=== PATIENT | male | born 1995 | race Hispanic/Latino ===

== ENCOUNTER 2019-01-07 01:17 | Emergency (ER) | payer SELFPAY ==
[2019-01-07] MEDS ORDERED: TETANUS & DIPHTHERIA TOX,ADULT 0.5 ML VIAL ONE (02:27)
[2019-01-07] MEDS ORDERED: HYDROCODONE/APAP 7.5/325 MG TAB ONE (02:27)
--- NOTE | 2019-01-07 02:48 | ER ---
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 No active bleeding at this time. Transition of care: patient was not received from another setting of care. Onset of symptoms was January 07, 2019. Risk Assessment: Do you want to hurt yourself or someone else? Patient reports no desire to harm self or others. Initial Sepsis Screen: Does the patient meet any 2 criteria? No. Patient's initial sepsis screen is negative. Does the patient have a suspected source of infection? Yes: Skin breakdown/wound. Care prior to arrival: None. 01:34 Method Of Arrival: Ambulatory aa1 01:34 Acuity: RONALD 4 aa1 Triage Assessment: 01:35 General: Appears in no apparent distress. comfortable, Behavior is calm, cooperative, aa1 appropriate for age. Historical: - Allergies: 01:35 No Known Allergies; aa1 - Home Meds: 01:35 None [Active]; aa1 - PMHx: 01:35 None; aa1 - PSHx: 01:35 Tonsillectomy; aa1 - Immunization history:: Last tetanus immunization: unknown. - Social history:: Smoking status: Patient/guardian denies using tobacco. - Ebola Screening: : No symptoms or risks identified at this time. Screenin:05 Abuse screen: Denies threats or abuse. Denies injuries from another. Nutritional aa1 screening: No deficits noted. Tuberculosis screening: No symptoms or risk factors identified. Fall Risk None identified. Assessment: 02:05 General: Appears in no apparent distress. comfortable, Behavior is calm, cooperative, aa1 appropriate for age. Pain: Complains of pain in palmar aspect of right forearm. Neuro: Level of Consciousness is awake, alert, obeys commands, Oriented to person, place, time, situation, Moves all extremities. Respiratory: Airway is patent Respiratory effort is even, unlabored, Respiratory pattern is regular, symmetrical. GI: No signs and/or symptoms were reported involving the gastrointestinal system. : No signs and/or symptoms were reported regarding the genitourinary system. EENT: No signs and/or symptoms were reported regarding the EENT system. Derm: Skin is intact, is healthy with good turgor, Skin is pink, warm \T\ dry. Musculoskeletal: Circulation, motion, and sensation intact. Capillary refill < 3 seconds, Range of motion: intact in all extremities. Injury Description: Laceration sustained to palmar aspect of right forearm is superficial, 0.5 to 2.5 cm long, not bleeding. 02:54 Reassessment: Patient appears in no apparent distress at this time. Patient is alert, aa1 oriented x 3, equal unlabored respirations, skin warm/dry/pink. Discussed d/c \T\ f/u instructions with pt \T\ family; denies questions or concerns at this time Patient states feeling better. Vital Signs: 01:35 BP 161 / 76; Pulse 65; Resp 16; Temp 98.5; Pulse Ox 98% on R/A; Weight 77.11 kg; Height aa1 5 ft. 7 in. (170.18 cm); Pain 6/10; 02:54 BP 132 / 67; Pulse 62; Resp 16; Pulse Ox 99% on R/A; Pain 4/10; aa1 01:35 Body Mass Index 26.63 (77.11 kg, 170.18 cm) aa1 ED Course: 01:21 Patient arrived in ED. am2 01:34 Triage completed. aa1 01:35 Arm band placed on right wrist. Patient placed in waiting room, Patient notified of aa1 wait time. 01:59 Que Santo MD is Attending Physician. pkl 02:05 Patient has correct armband on for positive identification. Bed in low position. Call aa1 light in reach. 02:09 Hailey Sky RN is Primary Nurse. aa1 02:17 X-ray completed. Portable x-ray completed in exam room. Patient tolerated procedure tm4 well. 02:18 Forearm Right XRAY In Process Unspecified. EDMS 02:45 No provider procedures requiring assistance completed. Patient did not have IV access aa1 during this emergency room visit. Dressings: Macarena x 1 palmar aspect of right forearm non-adherent dressing x 1 palmar aspect of right forearm. Sling applied to right arm. Wound care: to laceration located on palmar aspect of right forearm was cleaned with Hibiclens, irrigated with normal saline, dressed with Neosporin, Patient tolerated well. 02:46 Byron Rodríguez MD is Referral Physician. 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 Lot #: [id number]. } Route: IM; Site: right deltoid; 02:47 Follow up: Response: No adverse reaction aa1 02:18 Drug: [place] (7.5 mg-325 mg) 1 tabs Route: PO; aa1 02:54 Follow up: Response: No adverse reaction; Pain is decreased aa1 02:53 Drug: KeFLEX 500 mg Route: PO; aa1 02:53 Follow up: Response: No adverse reaction; Medication administered at discharge. aa1 Outcome: 02:46 Discharge ordered by MD. pkl 02:58 Discharged to home ambulatory, with family. aa1 02:58 Condition: good 02:58 Discharge instructions given to patient, family, Instructed on discharge instructions, follow up and referral plans. medication usage, wound care, Demonstrated understanding of instructions, follow-up care, medications, wound care, Prescriptions given X 2. 03:14 Patient left the ED. ag4 Signatures: Dispatcher [employer] Hailey Bautista RN RN aa1 Que Santo MD MD pkl Marcela Vences 4 Danielle Dang Adan ag4
--- NOTE | 2019-01-07 02:48 | EDPHYS ---
Physician Documentation [facility] Name: Herson Conteh Age: 23 yrs Sex: Male : 1995 Arrival Date: 01/07/2019 Time: 01:21 Bed 12 Private MD: ED Physician Que Santo HPI: 01/07 02:38 This 23 yrs old Male presents to ER via Ambulatory with complaints of Puncture pkl Wound To Arm - by nail. 02:38 The patient or guardian complains of pain, that is acute, nail puncture wound . The pkl complaints affect the right forearm. Onset: The symptoms/episode began/occurred just prior to arrival. Historical: - Allergies: 01:35 No Known Allergies; aa1 - Home Meds: 01:35 None [Active]; aa1 - PMHx: 01:35 None; aa1 - PSHx: 01:35 Tonsillectomy; aa1 - Immunization history:: Last tetanus immunization: unknown. - Social history:: Smoking status: Patient/guardian denies using tobacco. - Ebola Screening: : No symptoms or risks identified at this time. ROS: 02:38 Eyes: Negative for injury, pain, redness, and discharge, ENT: Negative for injury, pkl pain, and discharge, Neck: Negative for injury, pain, and swelling, Cardiovascular: Negative for chest pain, palpitations, and edema, Respiratory: Negative for shortness of breath, cough, wheezing, and pleuritic chest pain, Abdomen/GI: Negative for abdominal pain, nausea, vomiting, diarrhea, and constipation, Back: Negative for injury and pain, : Negative for injury, bleeding, discharge, and swelling. 02:38 MS/extremity: Positive for pain, puncture, of the right forearm. 02:38 Neuro: Negative for altered mental status. Exam: 02:38 Head/Face: Normocephalic, atraumatic. Eyes: Pupils equal round and reactive to light, pkl extra-ocular motions intact. Lids and lashes normal. Conjunctiva and sclera are non-icteric and not injected. Cornea within normal limits. Periorbital areas with no swelling, redness, or edema. ENT: Nares patent. No nasal discharge, no septal abnormalities noted. Tympanic membranes are normal and external auditory canals are clear. Oropharynx with no redness, swelling, or masses, exudates, or evidence of obstruction, uvula midline. Mucous membranes moist. Neck: Trachea midline, no thyromegaly or masses palpated, and no cervical lymphadenopathy. Supple, full range of motion without nuchal rigidity, or vertebral point tenderness. No Meningismus. Chest/axilla: Normal chest wall appearance and motion. Nontender with no deformity. No lesions are appreciated. Cardiovascular: Regular rate and rhythm with a normal S1 and S2. No gallops, murmurs, or rubs. Normal PMI, no JVD. No pulse deficits. Respiratory: Lungs have equal breath sounds bilaterally, clear to auscultation and percussion. No rales, rhonchi or wheezes noted. No increased work of breathing, no retractions or nasal flaring. Abdomen/GI: Soft, non-tender, with normal bowel sounds. No distension or tympany. No guarding or rebound. No evidence of tenderness throughout. Back: No spinal tenderness. No costovertebral tenderness. Full range of motion. Neuro: Awake and alert, GCS 15, oriented to person, place, time, and situation. Cranial nerves II-XII grossly intact. Motor strength 5/5 in all extremities. Sensory grossly intact. Cerebellar exam normal. Normal gait. 02:38 Musculoskeletal/extremity: Extremities: grossly normal except: noted in the right forearm: pain, No active bleeding noted. Vital Signs: 01:35 BP 161 / 76; Pulse 65; Resp 16; Temp 98.5; Pulse Ox 98% on R/A; Weight 77.11 kg; Height aa1 5 ft. 7 in. (170.18 cm); Pain 6/10; 02:54 BP 132 / 67; Pulse 62; Resp 16; Pulse Ox 99% on R/A; Pain 4/10; aa1 01:35 Body Mass Index 26.63 (77.11 kg, 170.18 cm) aa1 Procedures: 02:38 Puncture wound thoroughly cleansed. Antibiotic started. Follow up with Dr. Rosenthal in 2 pk to 3 days. Return if necessary. Patient understood instructions. MDM: 01:59 Patient medically screened. pkl 02:38 Data reviewed: vital signs, nurses notes, radiologic studies, plain films. 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 Lot #: [id number]. } Route: IM; Site: right deltoid; 02:47 Follow up: Response: No adverse reaction aa1 02:18 Drug: [place] (7.5 mg-325 mg) 1 tabs Route: PO; aa1 02:54 Follow up: Response: No adverse reaction; Pain is decreased aa1 02:53 Drug: KeFLEX 500 mg Route: PO; aa1 02:53 Follow up: Response: No adverse reaction; Medication administered at discharge. aa1 Disposition: 01/07/19 02:46 Discharged to Home. Impression: Puncture wound right forearm. - Condition is Stable. - Prescriptions for Keflex 500 mg Oral Capsule - take 1 capsule by ORAL route every 6 hours for 7 days; 28 capsule. Ultram 50 mg Oral Tablet - take 1 tablet by ORAL route every 8 hours As needed; 20 tablet. - Work release form, Medication Reconciliation Form, Thank You Letter, Antibiotic Education, Prescription Opioid Use form. - Follow up: Byron Rodríguez MD; When: 2 - 3 days; Reason: Re-evaluation by your physician. - Problem is new. - Symptoms have improved. Signatures: Dispatcher [employer] Hailey Bautista RN RN aa1 Que Santo MD MD pkl Marcelo Franco ag4 Corrections: (The following items were deleted from the chart) 03:14 02:46 01/07/2019 02:46 Discharged to Home. Impression: Puncture wound right forearm. ag4 Condition is Stable. Forms are Medication Reconciliation Form, Thank You Letter, Antibiotic Education, Prescription Opioid Use. Follow up: Byron Rodríguez; When: 2 - 3 days; Reason: Re-evaluation by your physician. Problem is new. Symptoms have improved. pkl
[2019-01-07] MEDS ORDERED: CEPHALEXIN 250 MG CAP ONE (03:04)
--- NOTE | 2019-01-07 08:36 | RAD REPORT ---
EXAM DESCRIPTION: RAD - Forearm Right - 01/07/2019 2:16 am CLINICAL HISTORY: Puncture wound COMPARISON: None. Right arm FINDINGS: No fracture is identified. There is no dislocation or periosteal reaction noted. Soft tissue wound is present posterior mid forearm. Air is seen in soft tissues. No foreign body conf irmed. IMPRESSION: Posterior right forearm soft tissue wound. No foreign body confirmed. No bone abnormality.
== END 2019-01-07 03:14 | disposition home or self-care (01) ==
LOC: ER 01:17
DX: S51.831A Puncture wound without foreign body of right forearm, initial encounter (principal); W45.0XXA Nail entering through skin, initial encounter; Y93.9 Activity, unspecified; Y92.9 Unspecified place or not applicable; Z23 Encounter for immunization
CPT/HCPCS: 90471; 90714; 99284

== ENCOUNTER 2021-10-13 20:19 | Emergency (ER) | payer SELFPAY ==
--- NOTE | 2021-10-13 21:30 | ER ---
Nurse's Notes [facility] Name: Herson Conteh Age: 26 yrs Sex: Male : 1995 Arrival Date: 10/13/2021 Time: 20:24 Bed 10 Private MD: Diagnosis: Anxiety disorder, unspecified Presentation: 10/13 21:02 Chief complaint: Patient states: "I have had a headache for the last 6 days, I checked vc1 my blood pressure and it was high in the 190's". Coronavirus screen: Vaccine status: Patient reports being unvaccinated. At this time, the client does not indicate any symptoms associated with coronavirus-19. Ebola Screen: No symptoms or risks identified at this time. Risk Assessment: Do you want to hurt yourself or someone else? Patient reports no desire to harm self or others. Onset of symptoms is unknown. 21:02 Method Of Arrival: Ambulatory vc1 21:02 Acuity: RONALD 3 vc1 Triage Assessment: 21:04 General: Appears in no apparent distress. comfortable, Behavior is calm, cooperative, vc1 appropriate for age. Pain: Complains of pain in headache Pain does not radiate. Historical: - Allergies: 21:04 No Known Allergies; vc1 - Home Meds: 21:04 None [Active]; vc1 - PMHx: 21:04 None; vc1 - PSHx: 21:04 None; vc1 - Immunization history:: Adult Immunizations up to date, Client reports having NOT received the Covid vaccine. Flu vaccine is not up to date. - Social history:: Smoking status: unknown. Screenin:16 Abuse screen: Denies threats or abuse. Denies injuries from another. Nutritional ld1 screening: No deficits noted. Tuberculosis screening: No symptoms or risk factors identified. Fall Risk None identified. Assessment: 21:16 Reassessment: see triage assessment Patient denies pain at this time. ld1 Vital Signs: 21:05 Weight 75.3 kg; Height 5 ft. 7 in. (170.18 cm); vc1 21:16 BP 143 / 83; Pulse 91; Resp 18; Temp 98.7(TE); Pulse Ox 100% on R/A; Weight 74.84 kg; ld1 Height 5 ft. 7 in. (170.18 cm); Pain 0/10; 21:16 Body Mass Index 25.84 (74.84 kg, 170.18 cm) ld1 ED Course: 20:24 Patient arrived in ED. kz 20:59 [facility]tran [facility] jr8 20:59 Adriel Garcia MD is Attending Physician. jr8 21:04 Triage completed. vc1 21:05 Arm band placed on right wrist. vc1 21:07 Alexia Stevenson, RN is Primary Nurse. ld1 21:16 Patient has correct armband on for positive identification. Placed in gown. Bed in low ld1 position. Call light in reach. Side rails up X2. Pulse ox on. NIBP on. Door closed. Noise minimized. Warm blanket given. 21:16 No provider procedures requiring assistance completed. ld1 21:36 Patient did not have IV access during this emergency room visit. ld1 Administered Medications: No medications were administered Outcome: 21:29 Discharge ordered by . jr8 21:36 Discharged to home ambulatory. ld1 21:36 Condition: stable 21:36 Discharge instructions given to patient, Instructed on discharge instructions, follow up and referral plans. medication usage, Demonstrated understanding of instructions, follow-up care, medications, Prescriptions given X 1. 21:36 Patient left the ED. ld1 Signatures: Faisal Beltran PA PA jr8 Alexia Stevenson, RN RN ld1 Terra Weber RN RN vc1 Marline Rutledge
--- NOTE | 2021-10-13 21:30 | EDPHYS ---
Physician Documentation [facility] Name: Herson Conteh Age: 26 yrs Sex: Male : 1995 Arrival Date: 10/13/2021 Time: 20:24 Bed 10 Private MD: ED Physician Adriel Garcia HPI: 10/13 23:47 This 26 yrs old Male presents to ER via Ambulatory with complaints of High jr8 Blood Pressure. 23:47 Onset: The symptoms/episode began/occurred acutely, today. Associated signs and jr8 symptoms: Pertinent positives: headache. The patient has experienced similar episodes in the past, a few times. The patient has not recently seen a physician. Patient stated that he has had mild headaches on and off for the past several days. Also with mild anxiety. Today blood pressure was elevated. Denies any other symptoms at this time. Historical: - Allergies: 21:04 No Known Allergies; vc1 - Home Meds: 21:04 None [Active]; vc1 - PMHx: 21:04 None; vc1 - PSHx: 21:04 None; vc1 - Immunization history:: Adult Immunizations up to date, Client reports having NOT received the Covid vaccine. Flu vaccine is not up to date. - Social history:: Smoking status: unknown. ROS: 23:47 Eyes: Negative for injury, pain, redness, and discharge, ENT: Negative for injury, jr8 pain, and discharge, Neck: Negative for injury, pain, and swelling, Cardiovascular: Negative for chest pain, palpitations, and edema, Respiratory: Negative for shortness of breath, cough, wheezing, and pleuritic chest pain, Abdomen/GI: Negative for abdominal pain, nausea, vomiting, diarrhea, and constipation, Back: Negative for injury and pain, MS/Extremity: Negative for injury and deformity, Skin: Negative for injury, rash, and discoloration. 23:47 Neuro: Positive for headache, Negative for dizziness, gait disturbance, numbness, tingling, visual changes, weakness. 23:47 Psych: Positive for anxiety. Exam: 23:47 Constitutional: This is a well developed, well nourished patient who is awake, alert, jr8 and in no acute distress. Neck: Trachea midline, no thyromegaly or masses palpated, and no cervical lymphadenopathy. Supple, full range of motion without nuchal rigidity, or vertebral point tenderness. No Meningismus. Cardiovascular: Regular rate and rhythm with a normal S1 and S2. No gallops, murmurs, or rubs. Normal PMI, no JVD. No pulse deficits. Respiratory: Lungs have equal breath sounds bilaterally, clear to auscultation and percussion. No rales, rhonchi or wheezes noted. No increased work of breathing, no retractions or nasal flaring. Abdomen/GI: Soft, non-tender, with normal bowel sounds. No distension or tympany. No guarding or rebound. No evidence of tenderness throughout. Back: No spinal tenderness. No costovertebral tenderness. Full range of motion. Skin: Warm, dry with normal turgor. Normal color with no rashes, no lesions, and no evidence of cellulitis. MS/ Extremity: Pulses equal, no cyanosis. Neurovascular intact. Full, normal range of motion. Neuro: Awake and alert, GCS 15, oriented to person, place, time, and situation. Cranial nerves II-XII grossly intact. Motor strength 5/5 in all extremities. Sensory grossly intact. Cerebellar exam normal. Normal gait. Psych: Awake, alert, with orientation to person, place and time. Behavior, mood, and affect are within normal limits. Vital Signs: 21:05 Weight 75.3 kg; Height 5 ft. 7 in. (170.18 cm); vc1 21:16 BP 143 / 83; Pulse 91; Resp 18; Temp 98.7(TE); Pulse Ox 100% on R/A; Weight 74.84 kg; ld1 Height 5 ft. 7 in. (170.18 cm); Pain 0/10; 21:16 Body Mass Index 25.84 (74.84 kg, 170.18 cm) ld1 MDM: 21:00 Patient medically screened. [facility] 21:28 Data reviewed: vital signs, nurses notes, and as a result, I will discharge patient. jr8 Data interpreted: Pulse oximetry: on room air is 100 %. Interpretation: normal. Counseling: I had a detailed discussion with the patient and/or guardian regarding: the historical points, exam findings, and any diagnostic results supporting the discharge/admit diagnosis, the need for outpatient follow up, a family practitioner, to return to the emergency department if symptoms worsen or persist or if there are any questions or concerns that arise at home. ED course: Patient feeling much better. Blood pressure stable at this point and will not treated with medication. Recommended that he keep a log to ensure that he is not having spikes in his blood pressure. Patient seems to be having anxiety which she has had in the past as well. We will start him on hydroxyzine to see how he does. If he worsens any point time to come back for further evaluation. Patient good with plan at this time. Otherwise needs to follow-up with primary care physician.. Administered Medications: No medications were administered Disposition Summary: 10/13/21 21:29 Discharge Ordered Location: Home jr8 Problem: new jr8 Symptoms: have improved jr8 Condition: Stable jr8 Diagnosis - Anxiety disorder, unspecified jr8 Followup: jr8 - With: Private Physician - When: 1 week - Reason: Recheck today's complaints, Continuance of care, Re-evaluation by your physician Discharge Instructions: - Discharge Summary Sheet jr8 - Panic Attack jr8 Forms: - Medication Reconciliation Form jr8 - Thank You Letter jr8 - Antibiotic Education jr8 - Prescription Opioid Use jr8 Prescriptions: - Hydroxyzine HCl 50 mg Oral Tablet - take 1 tablet by ORAL route every 8 hours As needed; 20 tablet; Refills: 0, jr8 Product Selection Permitted Addendum: 10/15/2021 06:37 Co-signature as Attending Physician, Adriel Garcia MD I agree with the assessment and c moore plan of care. Signatures: Adriel Garcia MD MD cha Roszak, Josh, PA PA jr8 Terra Weber RN RN vc1 Corrections: (The following items were deleted from the chart) 10/13 23:48 23:47 Constitutional: This is a well developed, well nourished patient who is awake, jr8 alert, and in no acute distress. Neck: Trachea midline, no thyromegaly or masses palpated, and no cervical lymphadenopathy. Supple, full range of motion without nuchal rigidity, or vertebral point tenderness. No Meningismus. Cardiovascular: Regular rate and rhythm with a normal S1 and S2. No gallops, murmurs, or rubs. Normal PMI, no JVD. No pulse deficits. Respiratory: Lungs have equal breath sounds bilaterally, clear to auscultation and percussion. No rales, rhonchi or wheezes noted. No increased work of breathing, no retractions or nasal flaring. Abdomen/GI: Soft, non-tender, with normal bowel sounds. No distension or tympany. No guarding or rebound. No evidence of tenderness throughout. Back: No spinal tenderness. No costovertebral tenderness. Full range of motion. Skin: Warm, dry with normal turgor. Normal color with no rashes, no lesions, and no evidence of cellulitis. MS/ Extremity: Pulses equal, no cyanosis. Neurovascular intact. Full, normal range of motion. Neuro: Awake and alert, GCS 15, oriented to person, place, time, and situation. Cranial nerves II-XII grossly intact. Motor strength 5/5 in all extremities. Sensory grossly intact. Cerebellar exam normal. Normal gait. jr8
[2021-10-13 22:15] VITALS: BP 143/83; TEMP 98.7; O2SAT 100
== END 2021-10-13 21:36 | disposition home or self-care (01) ==
LOC: ER 20:19
DX: F41.9 Anxiety disorder, unspecified (principal)
CPT/HCPCS: 99283